=== PATIENT | male | born 1970 | race African-American/Black ===

== ENCOUNTER 2016-10-11 06:39 | Emergency (ER) | payer OTHER ==
[2016-10-11] MEDS ORDERED: SODIUM CHLORIDE 1,000 ML IV STA (07:46)
[2016-10-11 08:21] LABS: URINE APPEARANCE CLEAR; URINE BILIRUBIN NEGATIVE (NEGATIVE); URINE BLOOD NEGATIVE (NEGATIVE); URINE COLOR LTYELLOW; URINE GLUCOSE (UA) 1+ (NEGATIVE); URINE KETONE NEGATIVE (NEGATIVE); URINE NITRITE NEGATIVE (NEGATIVE); URINE PROTEIN NEGATIVE (NEGATIVE); URINE UROBILINOGEN 2.0 E.U/dl E.U./dl (0.2-1.0)
[2016-10-11 08:22] VITALS: BMI 32.2
[2016-10-11 08:24] LABS: BASOPHIL 0.7 % (0-2.0); EOSINOPHIL 2.2 % (0-4.5); MCH 28.9 pg (25.7-33.7); MCHC 33.4 g/dl (32.0-35.9); MEAN CELL VOLUME 86.7 fl (80-96); MEAN PLT VOLUME 8.9 fl (7.5-11.1); NEUTROPHILS 66.6 % (42.8-82.8); PLATELET COUNT 257 K/MM3 (134-434); RDW 13.4 % (11.9-15.9); WHITE BLOOD COUNT 6.1 K/mm3 (4.0-10.0)
--- NOTE | 2016-10-11 08:35 | PDOC ---
[id number]: 10/11/16 07:15 History Source: Patient Exam Limitations: No Limitations - History of Present Illness Initial Comments: 10/11/16 08:29 46-year-old male with history of diabetes presents to the ED with complaints of polyuria and increased generalized weakness since awakening this morning. Patient states yesterday had mild symptoms but awoke this morning with worsening symptoms and instead of going to work he decided come to the ER for further evaluation. Patient states was unable to locate his glucometer at home. Patient denies recent illness, recent sickness, recent travel, recent change in meds, abdominal pain, nausea, diarrhea, or fever. 0 Timing/Duration: 4-6 hours Severity: moderate Associated Symptoms: reports: weakness Past History - Past Medical History Allergies/Adverse Reactions: Allergies Allergy/AdvReac Type Severity Reaction Status Date / Time No Known Allergies Allergy Verified 10/11/16 08:19 Diabetes: Yes (iddm) - Psycho/Social/Smoking Cessation Hx Anxiety: No Suicidal Ideation: No Smoking History: Never smoked Have you smoked in the past 12 months: No Information on smoking cessation initiated: No Hx Alcohol Use: No Drug/Substance Use Hx: No Substance Use Type: None Patient Lives Alone: No Review of Systems - Review of Systems Able to Perform ROS?: Yes Constitutional: Yes: Weakness HEENTM: No: Symptoms Reported Respiratory: No: Symptoms reported Cardiac (ROS): No: Symptoms Reported : Yes: Frequency Integumentary: No: Symptoms Reported Neurological: No: Symptoms reported Endocrine: Yes: Increased Urine Hematologic/Lymphatic: No: Symptoms Reported *Physical Exam - Vital Signs Last Vital Signs Temp Pulse Resp BP Pulse Ox 98.3 F 18 L 75 H 128/84 100 10/11/16 08:20 10/11/16 08:20 10/11/16 08:20 10/11/16 08:20 10/11/16 08:20 - Physical Exam General Appearance: Yes: Nourished, Appropriately Dressed. No: Apparent Distress HEENT: positive: EOMI, CHRISTOPHER. negative: Pale Conjunctivae Neck: positive: Supple Respiratory/Chest: positive: Lungs Clear, Normal Breath Sounds. negative: Respiratory Distress, Accessory Muscle Use Cardiovascular: positive: Regular Rhythm, Regular Rate. negative: Murmur Gastrointestinal/Abdominal: positive: Soft. negative: Tenderness Musculoskeletal: negative: CVA Tenderness Extremity: positive: Normal Capillary Refill Integumentary: positive: Normal Color, Warm, Moist Neurologic: positive: Motor Strength 5/5 ED Treatment Course - LABORATORY CBC & Chemistry Diagram: 10/11/16 07:57 10/11/16 07:57 Medical Decision Making - Medical Decision Making 10/11/16 08:25 Patient with history of diabetes presents with polyuria with generalized fatigue. Patient with normal vital signs upon arrival. BGM 170. Patient ordered for labs, urine, EKG and IV fluids. 10/11/16 11:05 Laboratory Tests 10/11/16 10/11/16 10/11/16 07:57 07:57 07:57 WBC 6.1 Hgb 13.5 Hct 40.3 Plt Count 257 Neutrophils % 66.6 Sodium 141 Potassium 4.4 Chloride 101 Carbon Dioxide 31 Anion Gap 9 BUN 12 Creatinine 0.9 Creat Clearance w eGFR > 60 POC Glucometer Random Glucose 141 H Calcium 8.8 Total Bilirubin 0.5 AST 24 ALT 29 Alkaline Phosphatase 84 Total Protein 6.8 Albumin 3.3 L Urine Glucose (UA) 1+ H Urine Ketones Negative Urine Nitrite Negative Ur Leukocyte Esterase 1+ H Urine RBC 7 Urine WBC 12 Acetone, Qual Negative 10/11/16 08:08 WBC Hgb Hct Plt Count Neutrophils % Sodium Potassium Chloride Carbon Dioxide Anion Gap BUN Creatinine Creat Clearance w eGFR POC Glucometer [id number] Random Glucose Calcium Total Bilirubin AST ALT Alkaline Phosphatase Total Protein Albumin Urine Glucose (UA) Urine Ketones Urine Nitrite Ur Leukocyte Esterase Urine RBC Urine WBC Acetone, Qual Gonorrhea and Chlamydia amplification sent patient denies discharge, vesicles, or sexual partner with positive STD history 10/11/16 11:58 Laboratory Tests 10/11/16 11:22 Chlamydia Competition Pending N. gonorrhoeae (YUSRA) Pending Patient does not want treatment for STD and states wants to wait for urine culture and STD testing prior to being treated. Patient aware not to have intercourse for 7 days and will be called if results are positive. *DC/Admit/Observation/Transfer Diagnosis at time of Disposition: Urinary frequency - Discharge Dispostion Disposition: HOME Condition at time of disposition: Good - Referrals Referrals: Chris Hall [Primary Care Provider] - - Patient Instructions Printed Discharge Instructions: How to Detect and Treat STDs, Facts About Sexually Transmitted Infections Additional Instructions: As requested you will not receive treatment for STD or urine results and will wait for your STD testing and urine culture prior to treatment. I do recommend no sexual intercourse for 7 days or at least until he received the results. If you do not hear from anyone in 7 days he may call [phone] to obtain them. - Post Discharge Activity Work/School Note: Back to Work
[2016-10-11 08:39] LABS: URINE LEUK ESTERASE 1+ (NEGATIVE)
[2016-10-11 08:44] LABS: URINE MUCUS RARE; URINE RBC 7 /hpf (0-3); URINE WBC 12 /hpf (3-5)
--- NOTE | 2016-10-11 09:40 | PDOC ---
*Physical Exam - Vital Signs Last Vital Signs Temp Pulse Resp BP Pulse Ox 98.3 F 75 18 128/84 100 10/11/16 08:20 10/11/16 08:20 10/11/16 08:20 10/11/16 08:20 10/11/16 08:20 - Physical Exam Comments: 10/11/16 08:40 MIDLEVEL NOTE Pt seen by Midlevel Provider under my direct supervision. Pt interviewed and examined. Ancillary studies reviewed. I agree with plan as outlined by Midlevel Provider. Laboratory Tests 10/11/16 10/11/16 10/11/16 07:57 07:57 07:57 WBC 6.1 RBC 4.65 Hgb 13.5 Hct 40.3 MCV 86.7 MCHC 33.4 RDW 13.4 Plt Count 257 MPV 8.9 Neutrophils % 66.6 Lymphocytes % 20.5 Monocytes % 10.0 Eosinophils % 2.2 Basophils % 0.7 Sodium 141 Potassium 4.4 Chloride 101 Carbon Dioxide 31 Anion Gap 9 BUN 12 Creatinine 0.9 Creat Clearance w eGFR > 60 POC Glucometer Random Glucose 141 H Calcium 8.8 Total Bilirubin 0.5 AST 24 ALT 29 Alkaline Phosphatase 84 Total Protein 6.8 Albumin 3.3 L Urine Color Ltyellow Urine Appearance Clear Urine pH 6.0 Ur Specific [place] 1.020 Urine Protein Negative Urine Glucose (UA) 1+ H Urine Ketones Negative Urine Blood Negative Urine Nitrite Negative Urine Bilirubin Negative Urine Urobilinogen 2.0 e.u/dl Ur Leukocyte Esterase 1+ H Urine RBC 7 Urine WBC 12 Ur Epithelial Cells Rare Urine Mucus Rare Acetone, Qual Negative 10/11/16 08:08 WBC RBC Hgb Hct MCV MCHC RDW Plt Count MPV Neutrophils % Lymphocytes % Monocytes % Eosinophils % Basophils % Sodium Potassium Chloride Carbon Dioxide Anion Gap BUN Creatinine Creat Clearance w eGFR POC Glucometer 170.42062 Random Glucose Calcium Total Bilirubin AST ALT Alkaline Phosphatase Total Protein Albumin Urine Color Urine Appearance Urine pH Ur Specific [place] Urine Protein Urine Glucose (UA) Urine Ketones Urine Blood Urine Nitrite Urine Bilirubin Urine Urobilinogen Ur Leukocyte Esterase Urine RBC Urine WBC Ur Epithelial Cells Urine Mucus Acetone, Qual Glucose 141, serum and urine ketones negative, point of care glucose 170 Urine culture and urine STD screen sent ED Treatment Course - LABORATORY CBC & Chemistry Diagram: 10/11/16 07:57 10/11/16 07:57 - ADDITIONAL ORDERS Additional order review: Laboratory Results 10/11/16 10/11/16 08:08 07:57 POC Glucometer [id number] Urine Color Ltyellow Urine Appearance Clear Urine pH 6.0 Ur Specific [place] 1.020 Urine Protein Negative Urine Glucose (UA) 1+ H Urine Ketones Negative Urine Blood Negative Urine Nitrite Negative Urine Bilirubin Negative Urine Urobilinogen 2.0 e.u/dl Ur Leukocyte Esterase 1+ H Urine RBC 7 Urine WBC 12 Ur Epithelial Cells Rare Urine Mucus Rare 10/11/16 10/11/16 08:08 07:57 RBC 4.65 MCV 86.7 MCHC 33.4 RDW 13.4 MPV 8.9 Neutrophils % 66.6 Lymphocytes % 20.5 Monocytes % 10.0 Eosinophils % 2.2 Basophils % 0.7 POC Glucometer [id number] *DC/Admit/Observation/Transfer Diagnosis at time of Disposition: Urinary frequency - Discharge Dispostion Disposition: HOME Condition at time of disposition: Good - Referrals Referrals: Chris Hall [Primary Care Provider] - - Patient Instructions Printed Discharge Instructions: Facts About Sexually Transmitted Infections, How to Detect and Treat STDs Additional Instructions: As requested you will not receive treatment for STD or urine results and will wait for your STD testing and urine culture prior to treatment. I do recommend no sexual intercourse for 7 days or at least until he received the results. If you do not hear from anyone in 7 days he may call [phone] to obtain them. - Post Discharge Activity Work/School Note: Back to Work
[2016-10-11 09:50] LABS: ACETONE SERUM NEGATIVE (NEGATIVE)
[2016-10-11 10:13] LABS: ALBUMIN 3.3 g/dl (3.4-5.0); ANION GAP 9 (8-16); CALCIUM 8.8 mg/dL (8.5-10.1); CO2 31 mmol/L (21-32); GLUCOSE,RANDOM 141 mg/dL (74-106)
[2016-10-11 10:17] LABS: ALK PHOS 84 U/L (45-117); BILIRUBIN,TOTAL 0.5 mg/dL (0.2-1.0); CREATININE 0.9 mg/dL (0.7-1.3); SGPT/ALT 29 U/L (12-78); TOT PROT 6.8 g/dl (6.4-8.2)
[2016-10-11 10:34] LABS: SGOT/AST 24 U/L (15-37)
[2016-10-11 12:12] VITALS: BP 124/80; PULSE 81; TEMP 98.2
--- NOTE | 2016-10-11 13:25 | EKG ---
Test Reason : Blood Pressure : / mmHG Vent. Rate : 079 BPM Atrial Rate : 079 BPM P-R Int : 152 ms QRS Dur : 102 ms QT Int : 364 ms P-R-T Axes : 045 014 020 degrees QTc Int : 417 ms NORMAL SINUS RHYTHM NORMAL ECG NO PREVIOUS ECGS AVAILABLE Confirmed by NIDIA VALERIO MD ([id number]) on 10/11/2016 1:24:58 PM Referred By: Confirmed By:NIDIA VALERIO MD
== END 2016-10-11 12:12 | disposition home or self-care (01) ==
LOC: JER 06:39
PROC: 3E0337Z Introduction of Electrolytic and Water Balance Substance into Peripheral Vein, Percutaneous Approach (ICD-10-PCS; principal; 2016-10-11)
DX: R35.0 Frequency of micturition (principal); E11.9 Type 2 diabetes mellitus without complications
CPT/HCPCS: 36415; 80053; 81003; 81015; 82009; 85025; 87086; 87491; 87591; 93005; 93010; 99284-25